=== PATIENT | female | born 1965 | race Caucasian/White ===

== ENCOUNTER 2016-11-24 15:23 | Emergency (ER) | payer SELFPAY ==
[2016-11-24 15:35] VITALS: BP 154/95
--- NOTE | 2016-11-24 15:40 | ER Document Report ---
ED Medical Screen (RME) - General Stated Complaint: BLOOD PRESSURE PROBLEM Time seen by provider: 15:35 Mode of Arrival: Ambulatory Information source: Patient TRAVEL OUTSIDE OF THE U.S. IN LAST 30 DAYS: No - HPI Patient complains to provider of: HIGH BLOOD PRESSURE Onset: Just prior to arrival Onset/Duration: Sudden Context: SENT OVER FROM [facility] DUE TO ELEVATED BP. PT STATES SHE WAS HAVING A PANIC ATTACK AND IT ALWAYS GETS HIGH WHEN IT HAPPENS. NO HX OF HTN. DENIES CP, SOB. PANIC IS NOW BETTER. OUT OF ALL HER MEDS FOR ONE WEEK, INCLUDING CLONAZEPAM WHICH SHE TAKES 1 MG 3X/DAILY. Quality of pain: No pain Severity: None Pain Level: Denies Associated Symptoms: None Exacerbated by: Denies Relieved by: Denies Similar symptoms previously: Yes - WHEN PANIC ATTACKS Recently seen / treated by doctor: No - Related Data Smoking: Cigarettes Frequency of alcohol use: None Drug Abuse: None Pertinent History: ANXIETY BIPOLAR Allergies/Adverse Reactions: meperidine HCl [From Demerol] Allergy (Unknown, Verified 11/24/16 15:30) Past Medical History - General Information source: Patient - Social History Cigarette use (# per day): Yes Chew tobacco use (# tins/day): No Frequency of alcohol use: None Drug Abuse: None Lives with: Spouse/Significant other Family history: Reviewed & Not Pertinent Psychiatric Medical History: Reports: Hx Anxiety, Hx Bipolar Disorder, Hx Depression, Hx Post Traumatic Stress Disorder Past Surgical History: Reports: Hx Orthopedic Surgery - Left shoulderx4, Hx Tubal Ligation - Immunizations Hx Diphtheria, Pertussis, Tetanus Vaccination: Yes Review of Systems - Review of Systems Constitutional: No symptoms reported EENT: No symptoms reported Cardiovascular: No symptoms reported Respiratory: No symptoms reported Gastrointestinal: No symptoms reported Genitourinary: No symptoms reported Female Genitourinary: No symptoms reported Musculoskeletal: No symptoms reported Skin: No symptoms reported Hematologic/Lymphatic: No symptoms reported Neurological/Psychological: Anxiety -: Yes All other systems reviewed and negative Physical Exam - Vital signs Vitals: Temp Pulse Resp BP Pulse Ox 98.3 F 85 18 154/95 H 97 11/24/16 15:33 11/24/16 15:33 11/24/16 15:33 11/24/16 15:33 11/24/16 15:33 - General General appearance: Appears well, Alert, Anxious In distress: None - HEENT Head: Normocephalic Eyes: Normal Conjunctiva: Normal - Respiratory Respiratory status: No respiratory distress Breath sounds: Normal - Cardiovascular Rhythm: Regular Heart sounds: Normal auscultation - Abdominal Inspection: Normal Bowel sounds: Normal Tenderness: Nontender - Extremities General upper extremity: Normal inspection General lower extremity: Normal inspection - Neurological Neuro grossly intact: Yes Cognition: Normal Orientation: AAOx4 [place] Coma Scale Eye Opening: Spontaneous Rebekah Coma Scale Verbal: Oriented Rebekah Coma Scale Motor: Obeys Commands Rebekah Coma Scale Total: 15 - Psychological Associated symptoms: Anxious - Skin Skin Temperature: Warm Skin Moisture: Dry Skin Color: Normal Course - Vital Signs Vital signs: Temp Pulse Resp BP Pulse Ox 98.3 F 85 18 154/95 H 97 11/24/16 15:33 11/24/16 15:33 11/24/16 15:33 11/24/16 15:33 11/24/16 15:33 Doctor's Discharge - Discharge Clinical Impression: Anxiety Condition: Good Additional Instructions: YOUR ELEVATE BLOOD PRESSURE MOST LIKELY FROM WITHDRAWAL FROM MEDS THAT YOU HAVE BEEN OUT OF FOR ONE WEEK. BLOOD PRESSURE TODAY IN ER WAS 154/90 PLEASE GET THEM REFILLED TODAY. [facility] UP WITH [facility] RETURN NEEDED.
== END 2016-11-24 15:50 | disposition home or self-care (01) ==
LOC: ER 15:23
DX: F41.9 Anxiety disorder, unspecified (principal); Z72.0 Tobacco use; Z91.14 Patient's other noncompliance with medication regimen; Z88.5 Allergy status to narcotic agent
CPT/HCPCS: 99283

== ENCOUNTER 2017-09-04 15:45 | Emergency (ER) | payer SELFPAY ==
--- NOTE | 2017-09-04 16:48 | ER Document Report ---
HPI - HPI Patient complains to provider of: Med refill, withdrawals, panic attack Onset: Other - States she ran out of Elavil Wednesday Klonopin and Celexa Quality of pain: Achy Severity: Moderate Pain Level: 4 Associated Symptoms: Body/muscle aches, Other - Insomnia anxiety and panic attacks Exacerbated by: Other - Lack of medication Relieved by: Denies Similar symptoms previously: Yes Recently seen / treated by doctor: No - ROS ROS below otherwise negative: Yes - CONSTITUTIONAL Constitutional: DENIES: Fever, Chills - EENT EENT: DENIES: Sore Throat, Ear Pain, Nasal Drainage-Clear, Nasal Drainage- Purulent, Congestion, Eye problems - NEURO Neurology: DENIES: Headache, Weakness, Vision blurred, Dizzinesss / Vertigo - CARDIOVASCULAR Cardiovascular: DENIES: Chest pain - RESPIRATORY Respiratory: DENIES: Trouble Breathing, Coughing - GASTROINTESTINAL Gastrointestinal: DENIES: Abdominal Pain, Nausea, Patient vomiting, Diarrhea, Constipation, Black / Bloody Stools - URINARY Urinary: DENIES: Dysuria, Urgency, Frequency - REPRODUCTIVE Reproductive: DENIES: :, Postmenopausal, Abnormal bleeding / discharge - MUSCULOSKELETAL Musculoskeletal: REPORTS: Extremity pain, Back Pain - DERM Skin Color: Normal Skin Problems: None Past Medical History - General Information source: Patient - Social History Smoking Status: Current Every Day Smoker Cigarette use (# per day): Yes Chew tobacco use (# tins/day): No Smoking Education Provided: Yes - Less than 2 minute Frequency of alcohol use: None Drug Abuse: None Lives with: Spouse/Significant other Family History: Reviewed & Not Pertinent Patient has suicidal ideation: No Patient has homicidal ideation: No - Past Medical History Cardiac Medical History: Reports: None Pulmonary Medical History: Reports: None EENT Medical History: Reports: None Neurological Medical History: Reports: None Endocrine Medical History: Reports: None Renal/ Medical History: Reports: None Malignancy Medical History: Reports: None GI Medical History: Reports: None Musculoskeltal Medical History: Reports Hx Musculoskeletal Deformity, Reports Hx Musculoskeletal Trauma Skin Medical History: Reports None Psychiatric Medical History: Reports: Hx Anxiety, Hx Bipolar Disorder, Hx Depression, Hx Post Traumatic Stress Disorder Traumatic Medical History: Reports: None Infectious Medical History: Reports: None Past Surgical History: Reports: Hx Orthopedic Surgery - Left shoulderx4, Hx Tubal Ligation - Immunizations Hx Diphtheria, Pertussis, Tetanus Vaccination: Yes Vertical Provider Document - CONSTITUTIONAL Agree With Documented VS: Yes Exam Limitations: No Limitations General Appearance: Mild Distress - INFECTION CONTROL TRAVEL OUTSIDE OF THE [place].S. IN LAST 30 DAYS: No - HEENT HEENT: Atraumatic, Normal ENT Exam, Normocephalic, PERRLA - NECK Neck: Normal Inspection, Supple - RESPIRATORY Respiratory: Breath Sounds Normal, No Respiratory Distress O2 Sat by Pulse Oximetry: 93 - CARDIOVASCULAR Cardiovascular: Regular Rate, Regular Rhythm - GI/ABDOMEN Gastrointestinal: Abdomen Soft, Abdomen Non-Tender, No Organomegaly, Normal Bowel Sounds - MUSCULOSKELETAL/EXTREMETIES Musculoskeletal/Extremeties: MAEW, FROM, Non-Tender - NEURO Level of Consciousness: Awake, Alert, Appropriate Motor/Sensory: No Motor Deficit, No Sensory Deficit - DERM Integumentary: Warm, Dry, No Rash Course - Re-evaluation Re-evalutation: 09/04/17 16:[address] Rosen about patient's request for Celexa Elavil and clonazepam. Patient states a closed and she cannot get a med appointment at [place] yet. She has a therapy appointment on Wednesday. After investigating [facility] very states she has not filled any medications there since 2016 patient states she was getting them through [facility]. There is no record on the [place] [facility] reporting system of her getting any counter medications. We consulted Dr. Rosen and he said to give her 1 week supply and she was to follow-up with a primary doctor before they ran out. - Vital Signs Vital signs: Temp Pulse Resp BP Pulse Ox 97.4 F 92 20 147/83 H 93 09/04/17 15:48 09/04/17 15:48 09/04/17 15:48 09/04/17 15:48 09/04/17 15:48 Discharge - Discharge Clinical Impression: Medication refill, Panic attack Condition: Stable Disposition: HOME, SELF-CARE Additional Instructions: Anxiety The physician feels that some of your health problems are being caused by anxiety. Anxiety affects your health in many ways. Anxiety alone can cause palpitations, sweats, chest pains, abdominal pains, shortness of breath, and headaches. It contributes to ulcer disease, high blood pressure, irritable bowel syndrome, and has been shown to cause flare-ups of many other diseases. Anxiety is not a simple disorder to treat. If the anxiety is due to recent life stresses, you may simply need time to "work through" the changes. If the anxiety is due to an underlying unhappiness with yourself or due to psychiatric disturbance, professional help will be needed. Your physician can refer you for further help if needed. Anti-anxiety medication is occasionally given if the stress is acute or if you are having trouble sleeping. Chronic or frequent use of these medications is not a good idea because the body becomes reliant on it, preventing you from dealing with life's normal stresses. Insomnia Everybody has trouble sleeping now and then. When it becomes a frequent problem, you must look for an underlying cause. Depression can interfere with sleep. Anxiety keeps people from falling asleep, while true depression causes fitful sleep and early awakening. If you think anxiety or depression might be your problem, your doctor can help. Many medicines can interfere with sleep. Try cutting back or eliminating caffeine. Watch out for "energizing" vitamins and herbs! Alcohol interferes powerfully with normal sleep. "Rebound insomnia" results when you stop taking sedating medicines like antihistamines, antianxiety medicine, or sleeping pills. Any medical problem that causes pain or bladder discomfort can interfere with sleep. Discuss any problem you have with your doctor. Get regular exercise. Have regular sleep times. Don't "sleep in." Avoid late afternoon naps. Sleeping pills may be temporarily helpful, but are never a long-term solution. Benzodiazepines You have been given a benzodiazepine medication. Examples of this type of medicine include Valium, Xanax, Librium, Ativan, and Halcion. Benzodiazepines have many uses. Medications of this type are used for insomnia, anxiety, muscle spasms, seizures, and drug and alcohol withdrawal. You may become very drowsy when you first take the medication. You should not drive or operate machinery while under its effects. Do not combine the medication with alcohol, or with any other medication without talking to your doctor. Do not take if without specific instruction from your engagement engineer. Some benzodiazepines may have harmful interactions with oral antifungal medicines such as ketoconazole, itraconazole, and nefazodone. If you are taking an antifungal medicine, discuss this with your doctor before taking benzodiazepines. You will get one weeks supply of your Celexa, Elavil, and clonazepam. You will need to find a primary doctor or a mental health worker to refill your prescriptions as the emergency room does not refill this type of medications. Mental health worker and the emergency room suggested that you call jd every day about 1:00 to see if there is been any cancellations on med appointments to get in to see your provider sooner. FOLLOW-UP CARE: If you have been referred to a physician for follow-up care, call the physician s office for an appointment as you were instructed or within the next two days. If you experience worsening or a significant change in your symptoms, notify the physician immediately or return to the Emergency Department at any time for re-evaluation. Prescriptions: Amitriptyline HCl [Elavil 50 Mg Tablet] 100 mg PO QHS #14 tablet Citalopram Hydrobromide [Celexa 20 mg Tablet] 20 mg PO DAILY #7 tablet Clonazepam 1 mg PO TID #21 tablet Referrals: MAGALIE RODRIGUES MD [Primary Care Provider] - Follow up as needed
[2017-09-04 17:03] VITALS: BP 145/86
== END 2017-09-04 17:03 | disposition home or self-care (01) ==
LOC: ER 15:45
DX: Z76.0 Encounter for issue of repeat prescription (principal); F41.0 Panic disorder [episodic paroxysmal anxiety]; T42.4X6A Underdosing of benzodiazepines, initial encounter; F31.9 Bipolar disorder, unspecified; T43.226A Underdosing of selective serotonin reuptake inhibitors, initial encounter; T43.016A Underdosing of tricyclic antidepressants, initial encounter; Z91.128 Patient's intentional underdosing of medication regimen for other reason; Z91.14 Patient's other noncompliance with medication regimen; M79.1 Myalgia; G47.00 Insomnia, unspecified; M54.9 Dorsalgia, unspecified; F17.210 Nicotine dependence, cigarettes, uncomplicated; Z71.6 Tobacco abuse counseling
CPT/HCPCS: 99281

== ENCOUNTER 2017-09-19 16:47 | Emergency (ER) | payer SELFPAY ==
--- NOTE | 2017-09-19 17:19 | ER Document Report ---
ED Medical Screen (RME) - General Chief Complaint: Anxiety Stated Complaint: ANIEXTY Time Seen by Provider: 09/19/17 17:15 Notes: Patient says that she is having panic attacks and is out of her medicines. She says she normally takes amitriptyline, Klonopin, and Celexa. She was here 2 weeks ago, out of her medicine at that time and was given a one-week supply of her medicines and advised she needed to find a primary care provider to prescribe her medications. Patient says that she is having difficulty breathing that she calls panic attacks and cannot get her medications until she has her appointment at [facility]. She was under the care of [facility] until they closed. Patient appears well. Vital signs are all essentially normal. Does not appear to be having a panic attack at this time to me. TRAVEL OUTSIDE OF THE [place].S[place] IN LAST 30 DAYS: No - Related Data Allergies/Adverse Reactions: meperidine HCl [From Demerol] Allergy (Unknown, Verified 09/19/17 17:06) Past Medical History - Social History Chew tobacco use (# tins/day): No Frequency of alcohol use: None Drug Abuse: None Family history: Reviewed & Not Pertinent Renal/ Medical History: Denies: Hx Peritoneal Dialysis Musculoskeltal Medical History: Reports Hx Musculoskeletal Deformity, Reports Hx Musculoskeletal Trauma Psychiatric Medical History: Reports: Hx Anxiety, Hx Bipolar Disorder, Hx Depression, Hx Post Traumatic Stress Disorder Past Surgical History: Reports: Hx Orthopedic Surgery - Left shoulderx4, Hx Tubal Ligation - Immunizations Hx Diphtheria, Pertussis, Tetanus Vaccination: Yes Physical Exam - Vital signs Vitals: Temp Pulse Resp BP Pulse Ox 97.8 F 110 H 18 147/100 H 96 09/19/17 17:06 09/19/17 17:06 09/19/17 17:06 09/19/17 17:06 09/19/17 17:06 Course - Vital Signs Vital signs: Temp Pulse Resp BP Pulse Ox 97.8 F 110 H 18 147/100 H 96 09/19/17 17:06 09/19/17 17:06 09/19/17 17:06 09/19/17 17:06 09/19/17 17:06 Doctor's Discharge - Discharge Instructions: Anxiety ([facility])
--- NOTE | 2017-09-19 19:36 | ER Document Report ---
ED General - General Chief Complaint: Anxiety Stated Complaint: ANIEXTY Time Seen by Provider: 09/19/17 17:15 Mode of Arrival: Ambulatory Information source: Patient Notes: 52-year-old female who is supposed to be receiving her medications but missed a appointment presents for refill of her medications. Patient was seen here approximately 1 week ago was given a refill done and presents again for another refill, she denies any fevers or chills denies any neurological deficits admits to feeling anxious TRAVEL OUTSIDE OF THE [place] IN LAST 30 DAYS: No - HPI Onset: Last week Onset/Duration: Intermittent Quality of pain: No pain Severity: Mild Pain Level: Denies Associated symptoms: Other - Anxiety Exacerbated by: Denies Relieved by: Denies Similar symptoms previously: Yes Recently seen / treated by doctor: Yes - Related Data Allergies/Adverse Reactions: meperidine HCl [From Demerol] Allergy (Unknown, Verified 09/19/17 17:06) Past Medical History - Social History Smoking Status: Current Every Day Smoker Cigarette use (# per day): Yes Chew tobacco use (# tins/day): No Smoking Education Provided: No Frequency of alcohol use: None Drug Abuse: None Family History: Reviewed & Not Pertinent Patient has suicidal ideation: No Patient has homicidal ideation: No Renal/ Medical History: Denies: Hx Peritoneal Dialysis Musculoskeltal Medical History: Reports Hx Musculoskeletal Deformity, Reports Hx Musculoskeletal Trauma Psychiatric Medical History: Reports: Hx Anxiety, Hx Bipolar Disorder, Hx Depression, Hx Post Traumatic Stress Disorder Past Surgical History: Reports: Hx Orthopedic Surgery - Left shoulderx4, Hx Tubal Ligation - Immunizations Hx Diphtheria, Pertussis, Tetanus Vaccination: Yes Review of Systems - Review of Systems Notes: REVIEW OF SYSTEMS: CONSTITUTIONAL : Denies fever, chills, or sweats. Denies recent illness. EENT: Denies eye, ear, throat, or mouth pain or symptoms. Denies nasal or sinus congestion or discharge. Denies throat, tongue, or mouth swelling or difficulty swallowing. CARDIOVASCULAR: Denies chest pain. Denies palpitations or racing or irregular heart beat. Denies ankle edema. RESPIRATORY: Denies cough, cold, or chest congestion. Denies shortness of breath, difficulty breathing, or wheezing. GASTROINTESTINAL: Denies abdominal pain or distention. Denies nausea, vomiting , or diarrhea. Denies blood in vomitus, stools, or per rectum. Denies black, tarry stools. Denies constipation. GENITOURINARY: Denies difficulty urinating, painful urination, burning, frequency, blood in urine, or discharge. FEMALE GENITOURINARY: Denies vaginal bleeding, heavy or abnormal periods, irregular periods. Denies vaginal discharge or odor. MUSCULOSKELETAL: Denies back or neck pain or stiffness. Denies joint pain or swelling. SKIN: Denies rash, lesions or sores. HEMATOLOGIC : Denies easy bruising or bleeding. LYMPHATIC: Denies swollen, enlarged glands. NEUROLOGICAL: Denies confusion or altered mental status. Denies passing out or loss of consciousness. Denies dizziness or lightheadedness. Denies headache. Denies weakness or paralysis or loss of use of either side. Denies problems with gait or speech. Denies sensory loss, numbness, or tingling. Denies seizures. PSYCHIATRIC: Admits to anxiety ALL OTHER SYSTEMS REVIEWED AND NEGATIVE. PHYSICAL EXAMINATION: GENERAL: Well-appearing, well-nourished and in no acute distress. HEAD: Atraumatic, normocephalic. EYES: Pupils equal round and reactive to light, extraocular movements intact, conjunctiva are normal. ENT: Nares patent, oropharynx clear without exudates. Moist mucous membranes. NECK: Normal range of motion, supple without lymphadenopathy LUNGS: Breath sounds clear to auscultation bilaterally and equal. No wheezes rales or rhonchi. HEART: Regular rate and rhythm without murmurs ABDOMEN: Soft, nontender, nondistended abdomen. No guarding, no rebound. No masses appreciated. Female : deferred Musculoskeletal: Normal range of motion, no pitting or edema. No cyanosis. NEUROLOGICAL: Cranial nerves grossly intact. Normal speech, normal gait. Normal sensory, motor exams PSYCH: Normal mood, normal affect. SKIN: Warm, Dry, normal turgor, no rashes or lesions noted. Dictation was performed using [employer] voice recognition software Physical Exam - Vital signs Vitals: Temp Pulse Resp BP Pulse Ox 97.8 F 110 H 18 147/100 H 96 09/19/17 17:06 09/19/17 17:06 09/19/17 17:06 09/19/17 17:06 09/19/17 17:06 Course - Re-evaluation Re-evalutation: 11/27/17 02:56 Patient denies any suicidal homicidal ideation she looks well overall, I will refill her medication again for 1 week. However I have explained that this the last time we will do this as it is not appropriate to continue refilling medications in the emergency department After performing a Medical Screening Examination, I estimate there is LOW risk for any life threatening mental health issues. At this time the patient looks extremely well and has not attempted severe self harm. I have reevaluated this patient multiple times and no significant life threatening changes are noted. The patient and I have discussed the diagnosis and risks, and we agree with discharging home with close follow-up with the understanding that symptoms and presentations can change. We also discussed returning to the Emergency Department immediately if new or worsening symptoms occur. We have discussed the symptoms which are most concerning (hallucinations, thoughts or actions of self harm or harm to others) that necessitate immediate return. - Vital Signs Vital signs: Temp Pulse Resp BP Pulse Ox 97.7 F 74 16 144/90 H 92 09/19/17 20:00 09/19/17 20:00 09/19/17 20:00 09/19/17 20:00 09/19/17 20:00 Discharge - Discharge Clinical Impression: Anxiety, Medication refill Condition: Stable Disposition: HOME, SELF-CARE Instructions: Anxiety (COUNTS INCLUDE 234 BEDS AT THE [facility]) Additional Instructions: We are refilling your medication again for 1 more week after this we will not refill medications as it is not appropriate through the emergency department Prescriptions: Amitriptyline HCl 100 mg PO QPM 7 Days tablet Citalopram Hydrobromide [Celexa 20 mg Tablet] 20 mg PO DAILY #7 tablet Clonazepam 1 mg PO Q8 #21 tablet [facility] [Primary [facility] Provider] - Follow up tomorrow
[2017-09-19 20:02] VITALS: BP 144/90
== END 2017-09-19 20:00 | disposition home or self-care (01) ==
LOC: ER 16:47
DX: F41.9 Anxiety disorder, unspecified (principal); F17.210 Nicotine dependence, cigarettes, uncomplicated
CPT/HCPCS: 99281

== ENCOUNTER 2017-10-31 16:14 | Emergency (ER) | payer SELFPAY ==
--- NOTE | 2017-11-01 01:20 | ER Document Report ---
ED Neck/Back Problem - General Mode of Arrival: Ambulatory Information source: Patient TRAVEL OUTSIDE OF THE [place] IN LAST 30 DAYS: No - General Chief Complaint: Back Pain Stated Complaint: CHRONIC BACK PAIN Time Seen by Provider: 10/31/17 23:21 Notes: 52-year-old female with a history of chronic back pain since has had pain all the way across her low back and sacrum that radiates down both of her legs causing numbness in both of her feet. The symptoms of numbness have been there for 4 months. She also complains of saddle anesthesia and inability to feel urine coming out for 4 months. Her primary care doctor wanted her to get a LS spine x-ray to check on arthritis she came to [facility] wanting the x-ray because she does not have enough money to get this done as an outpatient. No fever. No IV drug use. This is a duplication of her medical record since she will be spending the evening waiting for the MRI in the morning there is a paper downtime chart that [facility]. States she needs stronger pain medication than Jose. (HELEN MARTÍNEZ) - Related Data Allergies/Adverse Reactions: meperidine HCl [From Demerol] Allergy (Unknown, Verified 09/19/17 17:06) Past Medical History - General Information source: Patient - Social History Smoking Status: Current Every Day Smoker Frequency of alcohol use: None Drug Abuse: None Lives with: Spouse/Significant other Family History: Reviewed & Not Pertinent Renal/ Medical History: Denies: Hx Peritoneal Dialysis Musculoskeltal Medical History: Reports Hx Musculoskeletal Deformity, Reports Hx Musculoskeletal Trauma Psychiatric Medical History: Reports: Hx Anxiety, Hx Bipolar Disorder, Hx Depression, Hx Post Traumatic Stress Disorder Past Surgical History: Reports: Hx Orthopedic Surgery - Left shoulderx4, Hx Tubal Ligation - Immunizations Hx Diphtheria, Pertussis, Tetanus Vaccination: Yes Review of Systems - Review of Systems Constitutional: No symptoms reported EENT: No symptoms reported Cardiovascular: No symptoms reported Respiratory: No symptoms reported Gastrointestinal: No symptoms reported Genitourinary: No symptoms reported Female Genitourinary: No symptoms reported Musculoskeletal: See HPI Skin: No symptoms reported Hematologic/Lymphatic: No symptoms reported Neurological/Psychological: See HPI Physical Exam - Vital signs Interpretation: Normal - General General appearance: Appears well, Alert - HEENT Head: Normocephalic, Atraumatic Eyes: Normal Conjunctiva: Normal Pupils: PERRL Neck: Supple. No: Lymphadenopathy, Thyromegally - Respiratory Respiratory status: No respiratory distress Chest status: Nontender Breath sounds: Normal Chest palpation: Normal - Cardiovascular Rhythm: Regular Heart sounds: Normal auscultation Murmur: No - Abdominal Inspection: Normal Distension: No distension Bowel sounds: Normal Tenderness: Nontender Organomegaly: No organomegaly - Back Back: Normal, Nontender. No: Tender - no point tenderness - Extremities General upper extremity: Normal inspection, Nontender, Normal color, Normal ROM , Normal temperature General lower extremity: Normal inspection, Nontender, Normal color, Normal ROM , Normal temperature, Normal weight bearing. No: Miguelito's sign - Neurological Neuro grossly intact: Yes Cognition: Normal Orientation: AAOx4 [place] Coma Scale Eye Opening: Spontaneous [place] Coma Scale Verbal: Oriented Rebekah Coma Scale Motor: Obeys Commands Rebekah Coma Scale Total: 15 Speech: Normal Motor strength normal: LUE, RUE, LLE, RLE Sensory: Normal Knee - Reflex grade: 2 = Normal - bilateral Ankle - Reflex grade: 2 = Normal - right, left absent ankle reflex - Psychological Associated symptoms: Normal affect, Normal mood - Skin Skin Temperature: Warm Skin Moisture: Dry Skin Color: Normal Skin irregularity: negative: Rash - Vital signs Vitals: Temp Pulse Resp BP Pulse Ox 98.1 F 78 18 110/58 L 97 11/01/17 01:00 11/01/17 01:00 11/01/17 01:00 11/01/17 01:00 11/01/17 01:00 - General Notes: obese, gait stable but slow and deliberate (HELEN MARTÍNEZ) - Extremities Notes: pt states she can not feel her left achilles or plantar feet bilaterally. 2 + dp 's 5+ strength to dorsiflexion of toes, and feet eversion. (HELEN MARTÍNEZ) Course - Re-evaluation Re-evalutation: 11/01/17 01:38 pt now in room 8, care transferred to Samir Reyes at the bedside, MRI of the lumbosacral enterted in the computer as well so it is not overlooked again. Pt resting on her right side. (HELEN MARTÍNEZ) 11/01/17 09:19 Patient is an afebrile, well-hydrated, 52-year-old female who presents to the ED with chronic low back pain, with mild stenosis on MRI. Vitals are stable. See physical exam by primary provider performed on paper chart. Low suspicion for any meningitis, fracture, expanding/ruptured AAA, cauda equina syndrome, epidural mass lesion/abscess, herniated disc causing severe spinal stenosis, or other systemic infection at this time. Patient is aware that her condition can change from initial presentation and that she needs monitor symptoms closely for any acute changes. I will give her a shot of Decadron prior to discharge. I will send her home with a prescription for naproxen to use as needed. Conservative measures for symptoms. Recheck with your PCM in 3-5 days. Consider consult orthopedics and physical therapy for ongoing/worsening symptoms. Return to the ED with any worsening/concerning symptoms otherwise as reviewed in discharge. Patient is in agreement. Patient has no new concerns or complaints at this time and is ready to go home. (MELO WEN) - Vital Signs Vital signs: Temp Pulse Resp BP Pulse Ox 97.8 F 81 18 108/53 L 98 11/01/17 06:07 11/01/17 06:07 11/01/17 06:07 11/01/17 06:07 11/01/17 06:07 Discharge - Discharge Clinical Impression: Low back pain Qualifiers: Chronicity: acute Back pain laterality: bilateral Sciatica presence: unspecified whether sciatica present Qualified Code(s): M54.5 - Low back pain Condition: Stable Disposition: HOME, SELF-CARE Instructions: Low Back Pain ([facility]), Stretching Exercises for the Back ([facility]) Additional Instructions: Rest, Ice, Compression, Elevation Use crutches/splint/sling as directed Tylenol/ibuprofen as needed Light stretches daily Strength exercises as able Moist heat and massage may help F/u with your PCP in 3-5 days for a recheck Consider consult(s) with Orthopedics/physical therapy for ongoing/worsening symptoms Return to the ED with any worsening symptoms and/or development of fever, headache, chest pain, palpitations, syncope, shortness of breath, trouble breathing, abdominal pain, n/v/d, blood in stool/urine, loss of control of bowel /bladder, urinary retention, muscle weakness/paralysis, saddle anesthesia, numbness/tingling, or other worsening symptoms that are concerning to you. Prescriptions: Naproxen 500 mg PO BID PRN #30 tablet PRN Reason: Referrals: [facility] ([facility]) [Provider Group] - Follow up as needed
[2017-11-01] MEDS ORDERED: HYDROCODONE/ACETAMINOPHEN 5-325 MG TABLET PO ONE (04:26)
--- NOTE | 2017-11-01 08:45 | RADIOLOGY REPORT (SQ) ---
EXAM DESCRIPTION: MRI LUMBAR SPINE WITHOUT COMPLETED DATE/TIME: 11/01/2017 7:52 am REASON FOR STUDY: pain, numbness in legs COMPARISON: None. TECHNIQUE: Sagittal and Axial imaging includes T1, T2, STIR and gradient echo sequences. Coronal T2/ HASTE imaging. LIMITATIONS: None. FINDINGS: VISUALIZED UPPER ABDOMEN: Limited evaluation. No acute or suspicious findings suggested. SEGMENTATION: No transitional anatomy. The lowest well-developed disc space is labeled L5-S1. ALIGNMENT: Anatomic. VERTEBRAE: Intact. BONE MARROW: Reactive endplate changes L4-5. DISC SIGNAL: Loss of height and T2 signal L4-5. POSTERIOR ELEMENTS: Generally intact. No pars defect evident. HARDWARE: None in the spine. CORD AND CONUS: Normal in size and signal intensity. Conus at the appropriate level. SOFT TISSUES: No aortic aneurysm seen. No bulky retroperitoneal adenopathy or mass. No paraspinal mas s or fluid. L1-L2: No significant spinal stenosis or exit foraminal stenosis. L2-L3: Mild disc bulge. Mild narrowing of the exit foramina. L3-L4: Mild disc bulge. Mild narrowing of the exit foramina. L4-L5: Moderate disc bulge with small central protrusion. Facet and ligamentous hypertrophy. Mild n arrowing of the exit foramina and mild central canal stenosis. L5-S1: No significant spinal stenosis or exit foraminal stenosis. LOWER THORACIC: Incompletely imaged. No stenosis seen. SACRUM: Visualized upper sacrum intact. OTHER: No other significant findings. IMPRESSION: L4-5 with mild narrowing of the exit foramina and mild central canal stenosis. Less prominent changes L2-3 and L3-4. No cord compression. TECHNICAL DOCUMENTATION: JOB ID: [id number] [employer]- All Rights Reserved
[2017-11-01] MEDS ORDERED: DEXAMETHASONE SOD PHOS INJ 10 MG/1 ML VIAL IM ONE (09:26)
[2017-11-01 09:32] VITALS: BP 123/73
== END 2017-11-01 09:39 | disposition home or self-care (01) ==
LOC: ER 16:14
DX: M54.5 Low back pain (principal); G89.29 Other chronic pain; M53.3 Sacrococcygeal disorders, not elsewhere classified; F17.200 Nicotine dependence, unspecified, uncomplicated
CPT/HCPCS: 99284; 96372; 72148; J1100

== ENCOUNTER 2018-06-24 22:17 | Emergency (ER) | payer SELFPAY ==
--- NOTE | 2018-06-24 23:09 | ER Document Report ---
ED General - General Chief Complaint: Shortness Of Breath Stated Complaint: DIFFICULTY BREATHING Time Seen by Provider: 06/24/18 23:07 Notes: Patient is 53-year-old female presents with complaint of severe back pain that has been ongoing for over a week. It is at the thoracolumbar junction. No trauma. No injuries. She did have a fever 2 days ago of 101 but says is related to her teeth and she does have 2 teeth removed 2 days ago as well. She denies any IV drug abuse. No weakness or numbness into her extremities. No loss of bowel control. No difficulty urinating. She says it does hurt to take a deep breath. No history of PE or DVT. She has has it also hurts to move around. She does have a history of disc disease in her back. TRAVEL OUTSIDE OF THE [place] IN LAST 30 DAYS: No - Related Data Allergies/Adverse Reactions: meperidine HCl [From Demerol] Allergy (Unknown, Verified 09/19/17 17:06) Past Medical History - Social History Smoking Status: Current Every Day Smoker Frequency of alcohol use: None Drug Abuse: None Family History: Reviewed & Not Pertinent Renal/ Medical History: Denies: Hx Peritoneal Dialysis Musculoskeletal Medical History: Reports Hx Musculoskeletal Deformity, Reports Hx Musculoskeletal Trauma Psychiatric Medical History: Reports: Hx Anxiety, Hx Bipolar Disorder, Hx Depression, Hx Post Traumatic Stress Disorder Past Surgical History: Reports: Hx Orthopedic Surgery - Left shoulderx4, Hx Tubal Ligation - Immunizations Hx Diphtheria, Pertussis, Tetanus Vaccination: Yes Review of Systems - Review of Systems Notes: My Normal Review Basic REVIEW OF SYSTEMS: CONSTITUTIONAL : Denies fever, chills, or sweats. Denies recent illness. EENT: Denies eye, ear, throat, or mouth pain or symptoms. Denies nasal or sinus congestion. CARDIOVASCULAR: Denies chest pain. RESPIRATORY: Denies cough, cold, or chest congestion. Denies wheezing. Hurts to take a deep breath. GASTROINTESTINAL: Denies abdominal pain. Denies nausea, vomiting, or diarrhea. GENITOURINARY: Denies difficulty urinating, painful urination, burning, frequency, or blood in urine. MUSCULOSKELETAL: Back pain SKIN: Denies rash or skin lesions. NEUROLOGICAL: Denies altered mental status or loss of consciousness. Denies headache. Denies weakness or paralysis or loss of use of either side. Denies problems with gait or speech. Denies sensory or motor loss. ALL OTHER SYSTEMS REVIEWED AND NEGATIVE. Physical Exam - Vital signs Vitals: Temp Pulse Resp BP Pulse Ox 98.1 F 103 H 22 H 149/89 H 95 06/24/18 22:25 06/24/18 22:25 06/24/18 22:25 06/24/18 22:25 06/24/18 22:25 - Notes Notes: General Appearance: Well nourished, alert, cooperative, no acute distress, moderate to severe obvious discomfort. Vitals: reviewed, See vital signs table. Head: no swelling or tenderness to the head Eyes: PERRL, EOMI, Conjuctiva clear Mouth: No decreasd moisture Lungs: No wheezing, No rales, No rhonci, No accessory muscle use, good air exchange bilaterally. Heart: Normal rate, Regular rythm, No murmur, no rub Back: Pain palpation of the thoracolumbar junction. No redness or swelling on physical examination. Abdomen: Normal BS, soft, No rigidity, No abdominal tenderness, No guarding, no rebound, no abdominal masses, no organomegaly Extremities: strength 5/5 in all extremities, good pulses in all extremities, no swelling or tenderness in the extremities, no edema. Skin: warm, dry, appropriate color, no rash Neuro: speech clear, oriented x 3, normal affect, responds appropriately to questions. Distal sensation intact. Course - Re-evaluation Re-evalutation: 06/25/18 05:39 Treatment of her pain patient was able to stand up and walk back and forth to the bathroom. She says she feels much improved. She looks well and is no longer appear to be in significant pain. She has no focal neurologic deficits. She has some chronic numbness in her legs which is unchanged and not worsening. She does not have weakness on exam. She has had no loss of bowel control no urinary retention. Only fever she had was in regards to dental infection. She has not had any other fevers. I do not suspect osteomyelitis or discitis at this time. She denies any IV drug abuse. Informed patient I feel she is safe to be discharged home however if she develops worsening pain, any fevers, any weakness or new numbness into her extremities she must return to ER immediately. Encouraged follow-up closely with her primary care doctor. Patient agrees with plan will be discharged home. Dictation of this chart was performed using voice recognition software; therefore, there may be some unintended grammatical errors. - Vital Signs Vital signs: Temp Pulse Resp BP Pulse Ox 98.1 F 103 H 27 H 129/68 H 94 06/24/18 22:25 06/24/18 22:25 06/25/18 03:01 06/25/18 03:01 06/25/18 03:01 - Laboratory Result Diagrams: 06/24/18 23:43 06/24/18 23:43 Laboratory results interpreted by me: 06/24/18 06/24/18 23:43 23:43 WBC 11.1 H RBC 5.33 H Hgb 16.3 H Potassium 2.8 L* Chloride 91 L Carbon Dioxide 32 H Calcium 10.6 H - EKG Interpretation by Me Additional EKG results interpreted by me: 06/24/18 23:08 EKG is reviewed and interpreted by me. EKG shows sinus rhythm with a rate of [address] segment elevation or depression. No ischemic T wave inversions. IL interval, QRS duration, QTc intervals are within normal range. Old EKG for comparison is from August 10, 2015. Discharge - Discharge Clinical Impression: Hypokalemia Back pain Qualifiers: Back pain location: back pain in unspecified location Chronicity: unspecified Back pain laterality: bilateral Qualified Code(s): M54.9 - Dorsalgia, unspecified Condition: Good Disposition: HOME, SELF-CARE Additional Instructions: Please be aware that [place] does have Tylenol (acetaminophen) in it. Please make sure you do not take more than 4000 mg of acetaminophen a day. Do not drive or care for children after you have taken this medication they will make you sleepy and sometimes impair judgment. There is CT scan shows evidence of herniated disks as you are already aware of from the previous MRI. Please have a low threshold to return to the ER if you have worsening pain, fevers, leg weakness, loss of control of your bowel function, or inability to urinate. Your potassium level was a little low. Please take the porassium as prescribed and have your doctor reevaluate your back and recheck your potassium level next week Prescriptions: Potassium Chloride 20 meq PO DAILY #10 capsule.er
[2018-06-24] MEDS ORDERED: HYDROMORPHONE HCL INJ/PF 2 MG/ML AMPULE IV ONE (23:16)
[2018-06-24] MEDS ORDERED: ONDANSETRON HCL INJ/PF 4 MG/2 ML SDV IV ONE (23:16)
[2018-06-24 23:52] LABS: ABSOLUTE BASOPHILS # (AUTO) 0.1 10^3/uL (0.0-0.2); ABSOLUTE LYMPHOCYTES (AUTO) 3.5 10^3/uL (0.5-4.7); ABSOLUTE MONOCYTES (AUTO) 0.7 10^3/uL (0.1-1.4); ABSOLUTE NEUT (AUTO) 6.8 10^3/uL (1.7-8.2); BASOPHILS % (AUTO) 0.7 % (0-2); EOSINOPHILS % (AUTO) 0.4 % (0-6); HEMATOCRIT 46.8 % (36.0-47.0); HEMOGLOBIN 16.3 g/dL (12.0-15.5); LYMPHOCYTES % (AUTO) 31.7 % (13-45); MEAN CORPUSCULAR HEMOGLOBIN 30.6 pg (27.0-33.4); MEAN CORPUSCULAR HGB CONC 34.9 g/dL (32.0-36.0); MEAN CORPUSCULAR VOLUME 88 fl (80-97); MONOCYTES % (AUTO) 5.9 % (3-13); PLATELET COUNT 335 10^3/uL (150-450); RED BLOOD COUNT 5.33 10^6/uL (3.72-5.28); RED CELL DISTRIBUTION WIDTH 13.8 % (11.5-14.0); SEGMENTED NEUTROPHILS % (AUTO) 61.3 % (42-78); TOTAL CELLS COUNTED % (AUTO) 100 %; WHITE BLOOD COUNT 11.1 10^3/uL (4.0-10.5)
[2018-06-25 00:10] LABS: ALANINE AMINOTRANSFERASE 35 U/L (9-52); ALBUMIN 4.5 g/dL (3.5-5.0); ALKALINE PHOSPHATASE 92 U/L (38-126); ANION GAP 15 (5-19); ASPARTATE AMINO TRANSFERASE 30 U/L (14-36); BILIRUBIN,DIRECT 0.3 mg/dL (0.0-0.4); BILIRUBIN,TOTAL 0.6 mg/dL (0.2-1.3); BLOOD UREA NITROGEN 12 mg/dL (7-20); CALCIUM 10.6 mg/dL (8.4-10.2); CARBON DIOXIDE 32 mmol/L (22-30); CHLORIDE 91 mmol/L (98-107); GLUCOSE 109 mg/dL (75-110); TOTAL PROTEIN 8.2 g/dL (6.3-8.2)
[2018-06-25 00:19] LABS: POTASSIUM 2.8 mmol/L (3.6-5.0)
--- NOTE | 2018-06-25 00:26 | RADIOLOGY REPORT (SQ) ---
XR CHEST 1 VIEW HISTORY: Dyspnea. COMPARISON: 08/10/2015 FINDINGS/IMPRESSION: Normal cardiomediastinal contours. The pulmonary vasculature is unremarkable. Lungs are clear. No pleural effusion or pneumothorax is seen. No acute osseous findings.
[2018-06-25] MEDS ORDERED: POTASSIUM CHLORIDE 10 MEQ CAPSULE.ER PO ONE (00:27)
--- NOTE | 2018-06-25 01:42 | RADIOLOGY REPORT (SQ) ---
EXAM DESCRIPTION: CT THORACIC SPINE WITH IV CONTRAST, CT LUMBAR SPINE WITH IV CONTRAST COMPLETED DATE/TME: 06/25/2018 00:27 CLINICAL HISTORY: 53 years Female, severe back pain Comparison: MRI lumbar spine November 01, 2017 Technique: IV contrast. Coronal and sagittal reformat. This exam was performed according to our departmental dose-optimization program, which includes automated exposure control, adjustment of the mA and/or kV according to patient size and/or use of iterative reconstruction technique.[facility]: Dose Right [facility]: CareDose [facility]: Dose Right [facility]: Teradose 4D [facility]: [employer] LIMITATIONS: None Findings: L4-L5: Small wide disc protrusion mildly indents the right paracentral, ventral thecal sac. No significant spinal or foraminal canal compromise at any other thoracolumbar level. Small marginal osteophytes anteriorly of the mid and lower thoracic spine. Small disc bulge at L2-L3. Small anterior osteophytes of the upper and mid lumbar spine. Mild lower lumbar spondylosis. Atherosclerosis. Normal alignment. Normal curvature. No fracture. Normal vertebral heights. No enhancement defect. Partially imaged posterior thorax and retroperitoneum appear unremarkable. IMPRESSION: 1. Small L4-L5 disc protrusion causes [id number] right paracentral spinal canal stenosis. 2. Mild disc desiccation of the thoracolumbar spine.
--- NOTE | 2018-06-25 01:42 | RADIOLOGY REPORT (SQ) ---
EXAM DESCRIPTION: CT THORACIC SPINE WITH IV CONTRAST, CT LUMBAR SPINE WITH IV CONTRAST COMPLETED DATE/TME: 06/25/2018 00:27 CLINICAL HISTORY: 53 years Female, severe back pain Comparison: MRI lumbar spine November 01, 2017 Technique: IV contrast. Coronal and sagittal reformat. This exam was performed according to our departmental dose-optimization program, which includes automated exposure control, adjustment of the mA and/or kV according to patient size and/or use of iterative reconstruction technique.[facility]: Dose Right [facility]: CareDose [facility]: Dose Right [facility]: Teradose 4D [facility]: [employer] LIMITATIONS: None Findings: L4-L5: Small wide disc protrusion mildly indents the right paracentral, ventral thecal sac. No significant spinal or foraminal canal compromise at any other thoracolumbar level. Small marginal osteophytes anteriorly of the mid and lower thoracic spine. Small disc bulge at L2-L3. Small anterior osteophytes of the upper and mid lumbar spine. Mild lower lumbar spondylosis. Atherosclerosis. Normal alignment. Normal curvature. No fracture. Normal vertebral heights. No enhancement defect. Partially imaged posterior thorax and retroperitoneum appear unremarkable. IMPRESSION: 1. Small L4-L5 disc protrusion causes [id number] right paracentral spinal canal stenosis. 2. Mild disc desiccation of the thoracolumbar spine.
[2018-06-25] MEDS ORDERED: HYDROMORPHONE HCL INJ/PF 2 MG/ML AMPULE IV ONE (02:27)
[2018-06-25] MEDS ORDERED: DEXAMETHASONE SOD PHOS INJ 10 MG/1 ML VIAL IV ONE (03:31)
[2018-06-25] MEDS ORDERED: HYDROCODONE/ACETAMINOPHEN 5-325 MG (6 TAB/ER DISP) PO PRN (03:34)
[2018-06-25 03:45] VITALS: BP 129/68
--- NOTE | 2018-06-25 05:45 | EKG REPORT ---
SEVERITY:- ABNORMAL ECG - SINUS RHYTHM LEV, CONSIDER BIATRIAL ABNORMALITIES MINIMAL ST DEPRESSION, INFERIOR LEADS : Confirmed by: Gulshan Nicole MD 25-Jun-2018 05:45:02
== END 2018-06-25 03:59 | disposition home or self-care (01) ==
LOC: ER 22:17
DX: E87.6 Hypokalemia (principal); M54.9 Dorsalgia, unspecified; R06.02 Shortness of breath; R50.9 Fever, unspecified; F17.200 Nicotine dependence, unspecified, uncomplicated
CPT/HCPCS: 93005; 96376; 99285; 96374; 96375; 36415; 85025; 80053; 85379; 71045; 72129; 72132; 93010; J1170 ×2; J2405; J1100

== ENCOUNTER 2018-07-20 21:52 | Emergency (ER) | payer SELFPAY ==
[2018-07-20 22:12] VITALS: BP 151/83
== END 2018-07-20 23:05 | disposition left against medical advice (07) ==
LOC: ER 21:52
DX: Z53.21 Procedure and treatment not carried out due to patient leaving prior to being seen by health care provider (principal)

== ENCOUNTER 2018-07-24 18:14 | Emergency (ER) | payer SELFPAY ==
[2018-07-24] MEDS ORDERED: LIDOCAINE 5% (700 MG) TRANSDERMAL ADH..PATCH TP ONE (20:32)
[2018-07-24] MEDS ORDERED: HYDROCODONE/ACETAMINOPHEN 5-325 MG TABLET PO ONE (20:32)
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
[2018-07-24 21:37] LABS: ABSOLUTE EOSINOPHILS # (AUTO) 0.1 10^3/uL (0.0-0.6); ABSOLUTE MONOCYTES (AUTO) 0.8 10^3/uL (0.1-1.4); ABSOLUTE NEUT (AUTO) 5.7 10^3/uL (1.7-8.2); BASOPHILS % (AUTO) 0.5 % (0-2); HEMATOCRIT 44.5 % (36.0-47.0); LYMPHOCYTES % (AUTO) 31.4 % (13-45); MEAN CORPUSCULAR HEMOGLOBIN 30.1 pg (27.0-33.4); MEAN CORPUSCULAR HGB CONC 33.7 g/dL (32.0-36.0); MEAN CORPUSCULAR VOLUME 89 fl (80-97); MONOCYTES % (AUTO) 7.9 % (3-13); PLATELET COUNT 327 10^3/uL (150-450); RED BLOOD COUNT 4.98 10^6/uL (3.72-5.28); RED CELL DISTRIBUTION WIDTH 13.6 % (11.5-14.0); SEGMENTED NEUTROPHILS % (AUTO) 59.2 % (42-78); TOTAL CELLS COUNTED % (AUTO) 100 %; WHITE BLOOD COUNT 9.6 10^3/uL (4.0-10.5)
[2018-07-24 22:10] LABS: ALANINE AMINOTRANSFERASE 29 U/L (9-52); ALBUMIN 4.2 g/dL (3.5-5.0); ALKALINE PHOSPHATASE 88 U/L (38-126); ANION GAP 7 (5-19); ASPARTATE AMINO TRANSFERASE 27 U/L (14-36); BILIRUBIN,DIRECT 0.4 mg/dL (0.0-0.4); BILIRUBIN,TOTAL 0.4 mg/dL (0.2-1.3); BLOOD UREA NITROGEN 6 mg/dL (7-20); CALCIUM 9.8 mg/dL (8.4-10.2); CARBON DIOXIDE 33 mmol/L (22-30); CHLORIDE 101 mmol/L (98-107); GLUCOSE 92 mg/dL (75-110); POTASSIUM 3.2 mmol/L (3.6-5.0); SODIUM 140.9 mmol/L (137-145); TOTAL PROTEIN 7.7 g/dL (6.3-8.2)
[2018-07-24] MEDS ORDERED: POTASSIUM CHLORIDE 10 MEQ CAPSULE.ER PO ONE (22:35)
[2018-07-24] MEDS ORDERED: HYDROCODONE/ACETAMINOPHEN 5-325 MG (6 TAB/ER DISP) PO PRN (22:36)
[2018-07-24] MEDS ORDERED: HYDROXYZINE PAMOATE 50 MG CAPSULE PO ONE (22:54)
[2018-07-24 23:19] VITALS: BP 154/81
== END 2018-07-24 23:20 | disposition home or self-care (01) ==
LOC: ER 18:14
DX: R60.9 Edema, unspecified (principal); G89.29 Other chronic pain; M54.40 Lumbago with sciatica, unspecified side; E87.6 Hypokalemia; F41.9 Anxiety disorder, unspecified; F17.200 Nicotine dependence, unspecified, uncomplicated; Z86.59 Personal history of other mental and behavioral disorders; Z88.5 Allergy status to narcotic agent
CPT/HCPCS: 36415; 80053; 83880; 85025; 99283

== ENCOUNTER → 2018-08-25 | Outpatient (CLI) | payer OTHER ==
--- NOTE | 2018-08-25 13:33 | RADIOLOGY REPORT (SQ) ---
EXAM DESCRIPTION: C SP 6 OR MORE VIEWS COMPLETED DATE/TIME: 08/25/2018 9:53 am REASON FOR STUDY: NECK M46.92 UNSPECIFIED INFLAMMATORY SPONDYLOPATHY, CERVICAL LAYO COMPARISON: None. NUMBER OF VIEWS: Seven views. TECHNIQUE: AP, lateral, obliques, flexion, extension, and odontoid radiographic images acquired of t he cervical spine. LIMITATIONS: None. FINDINGS: MINERALIZATION: Normal. ALIGNMENT: Anatomic. FLEXION/EXTENSION: No instability. VERTEBRAE: Vertebral bodies of normal height. DISCS: Mild disc narrowing at C6-7 with small marginal osteophytes. FORAMINA: No osteophytes or foraminal narrowing. LATERAL AND POSTERIOR ELEMENTS: Facets, lateral masses, and spinous processes without significant fin dings. HARDWARE: None in the spine. SOFT TISSUES: No masses or calcifications. Lung apices clear. OTHER: No other significant finding. IMPRESSION: Mild degenerative disc disease and spondylosis. NO INSTABILITY ON FLEXION/EXTENSION. TECHNICAL DOCUMENTATION: JOB ID: [id number] [employer]- All Rights Reserved Reading location - IP/workstation name: [email or web address]
== END ==
LOC: CCC 09:31
DX: M46.92 Unspecified inflammatory spondylopathy, cervical region (principal); M50.323 Other cervical disc degeneration at C6-C7 level
CPT/HCPCS: 72052

== ENCOUNTER 2018-09-26 14:50 | Emergency (ER) | payer OTHER | END 2018-09-26 21:00 | disposition left against medical advice (07) | LOC: ER 14:50 | DX: Z53.21 Procedure and treatment not carried out due to patient leaving prior to being seen by health care provider (principal) ==

== ENCOUNTER 2018-09-29 10:53 | Emergency (ER) | payer SELFPAY ==
[2018-09-29] MEDS ORDERED: HYDROCODONE/ACETAMINOPHEN 5-325 MG TABLET PO ONE (11:09)
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
[2018-09-29 14:09] VITALS: BP 146/86
== END 2018-09-29 14:06 | disposition home or self-care (01) ==
LOC: ER 10:53
DX: S40.021A Contusion of right upper arm, initial encounter (principal); R68.84 Jaw pain; Y04.2XXA Assault by strike against or bumped into by another person, initial encounter; F17.200 Nicotine dependence, unspecified, uncomplicated
CPT/HCPCS: 70486; 99284

== ENCOUNTER → 2019-05-30 | Outpatient (CLI) | payer OTHER ==
[2019-05-30 15:07] LABS: ABSOLUTE BASOPHILS # (AUTO) 0.1 10^3/uL (0.0-0.2); ABSOLUTE EOSINOPHILS # (AUTO) 0.1 10^3/uL (0.0-0.6); ABSOLUTE LYMPHOCYTES (AUTO) 2.2 10^3/uL (0.5-4.7); ABSOLUTE MONOCYTES (AUTO) 0.5 10^3/uL (0.1-1.4); ABSOLUTE NEUT (AUTO) 4.3 10^3/uL (1.7-8.2); BASOPHILS % (AUTO) 0.8 % (0-2); EOSINOPHILS % (AUTO) 1.1 % (0-6); HEMATOCRIT 42.4 % (36.0-47.0); HEMOGLOBIN 14.4 g/dL (12.0-15.5); LYMPHOCYTES % (AUTO) 31.3 % (13-45); MEAN CORPUSCULAR HEMOGLOBIN 29.7 pg (27.0-33.4); MEAN CORPUSCULAR VOLUME 88 fl (80-97); MONOCYTES % (AUTO) 6.4 % (3-13); PLATELET COUNT 248 10^3/uL (150-450); RED BLOOD COUNT 4.84 10^6/uL (3.72-5.28); RED CELL DISTRIBUTION WIDTH 13.2 % (11.5-14.0); SEGMENTED NEUTROPHILS % (AUTO) 60.4 % (42-78); TOTAL CELLS COUNTED % (AUTO) 100 %; WHITE BLOOD COUNT 7.1 10^3/uL (4.0-10.5)
--- NOTE | 2019-05-30 15:19 | RADIOLOGY REPORT (SQ) ---
EXAM DESCRIPTION: CHEST PA/LATERAL COMPLETED DATE/TIME: 05/30/2019 2:50 pm REASON FOR STUDY: BRONCHITIS, NOT SPECIFIED ACUTE OR CHRONIC COMPARISON: 06/24/2018, 08/10/2015, 03/06/2014 EXAM PARAMETERS: NUMBER OF VIEWS: two views TECHNIQUE: Digital Frontal and Lateral radiographic views of the chest acquired. RADIATION DOSE: NA LIMITATIONS: none FINDINGS: LUNGS AND PLEURA: No opacities, masses or pneumothorax. No pleural effusion. MEDIASTINUM AND HILAR STRUCTURES: No masses or contour abnormalities. HEART AND VASCULAR STRUCTURES: Heart normal size. No evidence for failure. BONES: No acute findings. HARDWARE: None in the chest. OTHER: No other significant finding. IMPRESSION: NO SIGNIFICANT RADIOGRAPHIC FINDING IN THE CHEST. TECHNICAL DOCUMENTATION: JOB ID: [id number] [employer]- All Rights Reserved Reading location - IP/workstation name: [email or web address]
[2019-05-30 15:25] LABS: ANION GAP 9 (5-19); BLOOD UREA NITROGEN 9 mg/dL (7-20); CARBON DIOXIDE 31 mmol/L (22-30); CHLORIDE 100 mmol/L (98-107); GLUCOSE 102 mg/dL (75-110)
== END ==
LOC: OD 14:24
DX: J40 Bronchitis, not specified as acute or chronic (principal); I10 Essential (primary) hypertension
CPT/HCPCS: 36415; 71046; 80048; 85025

== ENCOUNTER 2019-06-14 19:14 | Emergency (ER) | payer OTHER ==
[2019-06-14 19:31] VITALS: BP 160/95
[2019-06-14] MEDS ORDERED: LORAZEPAM 1 MG TABLET PO ONE ×2 (20:19→21:00)
[2019-06-14] MEDS ORDERED: KETOROLAC TROMETHAMINE 60 MG/2 ML SDV IM ONE ×2 (20:19→21:00)
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
== END 2019-06-14 21:00 | disposition home or self-care (01) ==
LOC: ER 19:14
DX: F41.9 Anxiety disorder, unspecified (principal); Z79.899 Other long term (current) drug therapy; F17.200 Nicotine dependence, unspecified, uncomplicated
CPT/HCPCS: J1885